=== PATIENT | male | born 1945 | race Caucasian/White ===

== ENCOUNTER 2020-01-09 00:31 | Outpatient (CLI) | payer MEDICARE, SELFPAY ==
[2020-01-09 18:10] LABS: SARS-CoV-2 RNA PCR Negative
== END 2020-01-09 00:32 | disposition home or self-care (01) ==
LOC: ANHCOVIDDT 00:31
PROVIDERS: PCP Internal Medicine; Visit Provider Internal Medicine Gastroenterology
DX: Z20.828 Contact with and (suspected) exposure to other viral communicable diseases (principal); Z01.812 Encounter for preprocedural laboratory examination
CPT/HCPCS: 87635; C9803; U0003

== ENCOUNTER 2020-01-11 03:44 | Day surgery (SDC) | payer MEDICARE, SELFPAY ==
[2020-01-08 10:26] VITALS: BMI 25.2
[2020-01-11 08:29] VITALS: BP 156/93; PULSE 81; RESP 16; TEMP 36.5; O2SAT 97; BMI 25.3
[2020-01-11] MEDS: LACTATED RINGERS 1,000 ML 150 ML IV CONT (08:47)
--- NOTE | 2020-01-11 08:56 | WPDANESEPPF ---
Anes - Initial Pre Proc Eval Procedure: Operation Date: 01/11/20 09:00 Proposed Procedures p Screening Colonoscopy - Jonathan Valdes MD Date/Time: 01/11/20 08:56 Surgeon: Jonathan Valdes MD Pre Op Diagnosis: Hx Of Polyps Patient Data Age: 74 Gender: M Height: 1.78 m Weight: 80.2 kg Last Vital Signs Temp 36.5 C 01/11/20 08:29 Pulse 81 01/11/20 08:29 Resp 16 01/11/20 08:29 BP 156/93 H 01/11/20 08:29 Pulse Ox 97 01/11/20 08:29 Allergies Allergy/AdvReac Type Severity Reaction Status Date / Time No Known Allergies Allergy Verified 01/11/20 08:28 Home Medications Medication Instructions Recorded Confirmed Type amlodipine 5 mg PO DAILY 01/08/20 01/08/20 History aspirin 81 mg PO DAILY 01/08/20 01/11/20 History atorvastatin 20 mg PO DAILY 01/08/20 01/08/20 History azithromycin 250 mg PO DAILY 01/08/20 01/08/20 History benzonatate 200 mg PO TID 01/08/20 01/08/20 History lactobacillus combination no.4 3,000 mmu cells PO DAILY 01/08/20 01/08/20 History [Probiotic] latanoprost 1 drp OPHTHALMIC (EYE) DAILY 01/08/20 01/08/20 History kvmdzpvp-jit-HG-lycopen-lutein 1 tablet PO DAILY 01/08/20 01/08/20 History [Centrum Silver Men] [id number]-[id number]-jwd-epa-fish oil [[place]-3 1 cap PO DAILY 01/08/20 01/08/20 History Fish Oil] omeprazole 20 mg PO DAILY 01/08/20 01/08/20 History Patient hx anesthesia problems: none Family hx anesthesia problems: none PMFSH Past Medical History Medical History (Updated 01/10/20 @ 10:20 by Danny Ledesma DO) DVT (deep venous thrombosis) b/l lower legs 05/2018 post hiatal hernia repair GERD (gastroesophageal reflux disease) Glaucoma Hyperlipidemia Hypertension Pulmonary embolism Surgical History Surgical History (Updated 01/10/20 @ 10:20 by Danny Ledesma DO) History of repair of hiatal hernia History of tonsillectomy Social History Social History (Updated 01/11/20 @ 08:57 by Danny Ledesma DO) Alcohol intake: current Alcohol use details: 3 drinks/day Anes - Eval Final PreProcedure Day of Procedure 01/11/20 08:56 Patient weight: overweight Heart: regular rate and rhythm Lungs: clear to auscultation and normal air movement Airway: Mallampati scale class II Neurological: alert and oriented Last oral intake: >/= 8 hours ASA classification: III Emergent: no Anesthetic plan: proceed Anesthesia type and monitoring: general GIVS and standard monitoring Informed Consent: The patient's anesthetic plan and its attendant risks and benefits were discussed with the patient/family/POA. Questions were solicited and answers provided to the satisfaction of the patient/family/POA.
[2020-01-11 09:49] VITALS: BP 138/91; PULSE 80; RESP 24; O2SAT 94
[2020-01-11 09:59] VITALS: BP 136/87; PULSE 77; RESP 21; O2SAT 94
[2020-01-11 10:09] VITALS: BP 135/83; PULSE 73; RESP 17; O2SAT 96
--- NOTE | 2020-01-22 10:25 | PM.HPGS ---
History of Present Illness History of Present Illness Consent: Risks, benefits, and alternatives have been discussed and questions answered. Patient agrees to proceed with procedure. Chief complaint: Hx Of Polyps Narrative: Babak Gillis is a 74 year old male undergoing screening colonoscopy. He has a history of polyp PMFSH Past Medical History Medical History DVT (deep venous thrombosis) b/l lower legs 05/2018 post hiatal hernia repair GERD (gastroesophageal reflux disease) Glaucoma Hyperlipidemia Hypertension Pulmonary embolism Surgical History Surgical History History of repair of hiatal hernia History of tonsillectomy Social History Social History (Updated 01/11/20 @ 08:57 by Danny Ledesma DO) Alcohol intake: current Alcohol use details: 3 drinks/day Meds Home Medications and Allergies Home Medications Medication Instructions Recorded Confirmed Type Centrum Silver Men 1 tablet PO DAILY 01/08/20 01/08/20 History [place]-3 Fish Oil 1 cap PO DAILY 01/08/20 01/08/20 History Probiotic 3,000 mmu cells PO DAILY 01/08/20 01/08/20 History amlodipine 5 mg PO DAILY 01/08/20 01/08/20 History aspirin 81 mg PO DAILY 01/08/20 01/11/20 History atorvastatin 20 mg PO DAILY 01/08/20 01/08/20 History azithromycin 250 mg PO DAILY 01/08/20 01/08/20 History benzonatate 200 mg PO TID 01/08/20 01/08/20 History latanoprost 1 drp OPHTHALMIC (EYE) DAILY 01/08/20 01/08/20 History omeprazole 20 mg PO DAILY 01/08/20 01/08/20 History Allergies Allergy/AdvReac Type Severity Reaction Status Date / Time No Known Allergies Allergy Verified 01/11/20 08:28 Exam Resp: Auscultation: clear to auscultation bilaterally Cardio: Rate: regular rate Rhythm: regular rhythm GI: GI Palp: Yes Soft to palpation and No Tenderness to palpation present (GI) Assessment and Plan Assessment and plan (1) Colon cancer screening: Code(s): Z12.11 - Encounter for screening for malignant neoplasm of colon Status: Acute Assessment and Plan: Colonoscopy with possible biopsy or polypectomy or cautery or injection of substances.
== END 2020-01-11 10:35 | disposition home or self-care (01) ==
PROVIDERS: PCP Internal Medicine; Visit Provider Internal Medicine Gastroenterology
PROC: 0DJD8ZZ Inspection of Lower Intestinal Tract, Via Natural or Artificial Opening Endoscopic (ICD-10-PCS; CPT 45378; principal; 2020-01-11 09:00)
DX: Z12.11 Encounter for screening for malignant neoplasm of colon (principal); K64.8 Other hemorrhoids; K57.30 Diverticulosis of large intestine without perforation or abscess without bleeding; I10 Essential (primary) hypertension; E78.5 Hyperlipidemia, unspecified; K21.9 Gastro-esophageal reflux disease without esophagitis; H40.9 Unspecified glaucoma; Z86.711 Personal history of pulmonary embolism; Z86.718 Personal history of other venous thrombosis and embolism; Z79.82 Long term (current) use of aspirin
CPT/HCPCS: G0121; J2001; J2704; J7120

== ENCOUNTER 2020-12-01 12:41 | Emergency (ER) | payer MEDICARE, SELFPAY ==
[2020-12-01] VITALS (9 sets, daily range): BP systolic 148–178; BP diastolic 85–95; PULSE 76–96; RESP 11–21; TEMP 36.5; O2SAT 97–100
--- NOTE | ~2020-12-01 | CT_ITS ---
EXAMINATION: CTA brain carotid EXAM DATE: 12/01/2020 17:56 INDICATION: Dizziness, syncope, frontal headache. Skin cancer. TECHNIQUE: Noncontrast head CT. Spiral CTA of the carotid arteries was performed with intravenous i njection 100 cc of Omnipaque 350. Axial, coronal, sagittal reformatted images reviewed. Additional r eformatted images created on dedicated 3-D workstation. NASCET comparable standard used to assess th e degree of arterial stenosis. Spiral CT angiogram cerebral arteries performed with the same intrave nous injection of contrast. Source images of the brain CTA transferred to dedicated workstation for 3 -D rotational image creation. Coronal, sagittal maximum intensity pixel images also reviewed. The d ose-length product (DLP) for this examination was 1658.88 mGy-cm. The exposure was tailored accordi ng to patient size, and iterative reconstruction (ASIR) was used as additional dose reduction techniq ue. There is no prior study for comparison. FINDINGS: Minimal bilateral carotid arteriosclerosis, with 0% stenosis bilaterally. Tortuosity to bot h carotid arteries. The left vertebral artery is dominant. There is no carotid or vertebral basilar arterial dissection or fibromuscular dysplasia. There are no cerebral artery aneurysms. There is symm etric cerebral artery arborization. The sagittal, transverse and sigmoid sinuses enhance normally, no venous sinus thrombosis. Internal cerebral veins also enhance normally. There is no acute intraparenchymal hemorrhage. No evidence of intraparenchymal brain mass lesion. N o evidence of acute infarction. There is mild periventricular and subcortical hypodensity, nonspecifi c but probably related to small vessel ischemic disease. There is moderate prominence of the sulci and ventricles related to cerebral atrophy. There is intracranial carotid arteriosclerosis. There is no mass effect or midline shift. There is no obstructive hydrocephalus suspected. There are no e xtra-axial collections. There are no calvarial acute fractures. Bilateral cataract surgery. Moderat e cervical spondylosis. IMPRESSION: 1. No acute carotid or intracranial findings. 2. Bilateral carotid 0% stenosis. 3. Chronic age related findings. Reviewed, dictated and finalized at location A.
--- NOTE | ~2020-12-01 | XR_ITS ---
EXAMINATION: XR chest 2V DATE: 12/01/2020 13:31 INDICATION: Headache. Dizziness. TECHNIQUE: Frontal and lateral views of the chest were obtained. COMPARISON: Chest CT 07/06/2018 FINDINGS: Again seen is mild scarring in the upper lobes. No pleural effusion or pneumothorax. The he art size is normal. IMPRESSION: 1. Stable mild scarring in the upper lobes. Reviewed, dictated and finalized at location B.
--- NOTE | 2020-12-01 13:02 | ECG_ITS ---
Measurements Intervals [place] Rate: 85 P: 62 AK: 187 QRS: -68 QRSD: 96 T: 65 QT: 374 QTc: 447 Interpretive Statements SINUS RHYTHM LEFT ANTERIOR FASCICULAR BLOCK BASELINE ARTIFACT- I, II, AVR, AVL ABNORMAL ECG Electronically Signed On 12-01-2020 13:14:03 CDT by Mikel Silva D.O.
[2020-12-01 13:18] LABS: Basophils Percent Auto 0.3 % (0.2-1.2); Eosinophils Absolute Auto 0.1 K/mm3 (0-0.3); Eosinophils Percent Auto 1.3 % (0-4.4); Hematocrit 45.8 % (42.0-52.0); Hemoglobin 15.5 g/dL (14.0-18.0); Immature Granulocyte Absolute 0.02 K/mm3 (0.00-0.031); Immature Granulocyte Percent A 0.2 % (0-0.5); Lymphocytes Percent Auto 36.6 % (18.3-44.2); Mean Corpuscular HGB Conc 33.8 g/dl (32-36); Mean Corpuscular Hemoglobin 28.7 pg (26-34); Mean Corpuscular Volume 84.8 fl (80-100); Mean Platelet Volume 9.3 fl (7.4-10.4); Monocytes Absolute Auto 0.9 K/mm3 (0.1-0.6); Monocytes Percent Auto 9.7 % (2.6-8.5); Neutrophils Absolute Auto 4.5 K/mm3 (1.3-6.7); Neutrophils Percent Auto 51.9 % (45.5-73.1); Platelet Count Result 251 k/mm3 (150-375); Red Cell Distribution Width 13.8 % (11.5-14.5); White Blood Count 8.7 K/mm3 (4.5-10.0)
[2020-12-01 13:27] LABS: Alanine Aminotransferase 54 U/L (4-50); Albumin Level 4.2 g/dL (3.5-5.1); Alkaline Phosphatase 80 U/L (38-126); Anion Gap 5 mmol/L (8-16); Aspartate Amino Transferase 53 U/L (17-59); Bilirubin,Total 0.6 mg/dL (0.2-1.3); Blood Urea Nitrogen 10 mg/dL (9-20); Calcium 8.9 mg/dL (8.4-10.2); Carbon Dioxide 26 mmol/L (22-30); Chloride 107 mmol/L (98-107); Estimated CRCL calculation 57 ml/min; Estimated Glomerular Filt Rate > 60; Glucose 154 mg/dL (75-110); Potassium 4.2 mmol/L (3.4-5.0); Sodium 138 mmol/L (137-145)
[2020-12-01] MEDS: SODIUM CHLORIDE 0.9% IV 1,000 ML 999 ML IV CONT (18:01)
--- NOTE | 2020-12-01 18:01 | ED.GENADULT ---
HPI - General Adult General Chief complaint: Dizziness Stated complaint: wants blood pressure checked/near syncopal yesterd Time Seen by Provider: 12/01/20 17:16 Source: patient and RN notes reviewed Mode of arrival: ambulatory Limitations: no limitations History of Present Illness HPI narrative: Patient is 75-year-old male who presents to emergency department for evaluation of dizziness that began acutely last night at 11:00 patient notes history of vertigo but notes that the dizziness came on acutely with some mild pain across the forehead. Patient has history of vertigo as noted has not take anything for his symptoms. Patient notes mild discomfort across the forehead at this time. Patient denies injury trauma or other complaints presents in no distress with normal gait Related Data Home Medications Medication Instructions Recorded Confirmed Centrum Silver Men 1 tablet PO DAILY 01/08/20 01/08/20 [place]-3 Fish Oil 1 cap PO DAILY 01/08/20 01/08/20 Probiotic 3,000 mmu cells PO DAILY 01/08/20 01/08/20 amlodipine 5 mg PO DAILY 01/08/20 01/08/20 aspirin 81 mg PO DAILY 01/08/20 01/11/20 atorvastatin 20 mg PO DAILY 01/08/20 01/08/20 azithromycin 250 mg PO DAILY 01/08/20 01/08/20 benzonatate 200 mg PO TID 01/08/20 01/08/20 latanoprost 1 drp OPHTHALMIC (EYE) DAILY 01/08/20 01/08/20 omeprazole 20 mg PO DAILY 01/08/20 01/08/20 Allergies Allergy/AdvReac Type Severity Reaction Status Date / Time No Known Allergies Allergy Verified 12/01/20 17:18 Review of Systems Review of Systems: All systems reviewed & are unremarkable except as noted in HPI and below PMFSH Past Medical History Medical History (Updated 12/01/20 @ 18:08 by Ramesy Prather PA-C) DVT (deep venous thrombosis) b/l lower legs 05/2018 post hiatal hernia repair GERD (gastroesophageal reflux disease) Glaucoma Hyperlipidemia Hypertension Pulmonary embolism Surgical History Surgical History History of repair of hiatal hernia History of tonsillectomy Social History Social History Alcohol intake: current Exam Narrative: Exam Narrative: GENERAL: Well-appearing, obese, and in no acute distress. HEAD: Normocephalic, atraumatic. EYES: PERRLA and EOMI. ENT: Nares clear, no rhinorrhea or epistaxis. Mucous membranes moist. CHEST: Clear to auscultation. No respiratory distress. No wheezes rales or rhonchi HEART: Regular rate and rhythm. No murmur heard. EXTREMITIES: Normal range of motion. No edema. SKIN: Warm, dry, no rash. NEURO: No focal deficits. Alert and oriented x3. Cranial nerves II through XII grossly intact. Normal speech and gait. No pronator drift. Cerebellar intact. Normal gait and speech. Normal [id number]-[id number] and lmkirj-tz-yaky. Equal personal lines advisor. No facial asymmetry. Motor and sensory intact and symmetrical in the upper and lower extremities PSYCH: Normal mood and affect. Course Course Emergency Course: Patient evaluated in the emergency department he notes that his dizziness is minimal he is resting comfortably in the room prefers to go home will follow with his primary care was able to ambulate with normal gait ABCs and vital signs intact and stable is aware of his case findings. Vital Signs Vital signs: Vital Signs Temperature 97.7 F 12/01/20 13:03 Pulse Rate 91 12/01/20 13:03 Respiratory Rate 18 12/01/20 13:03 Blood Pressure 148/85 H 12/01/20 13:03 Pulse Oximetry 97 12/01/20 13:03 Temperature 97.7 F 12/01/20 13:03 Pulse Rate 91 12/01/20 13:03 Respiratory Rate 18 12/01/20 13:03 Blood Pressure 148/85 H 12/01/20 13:03 Pulse Oximetry 97 12/01/20 13:03 Medical Decision Making [facility] Narrative Medical decision making narrative: Patient's dizziness is minimal in nature per patient, there are no focal neurological deficits on exam. Subarachnoid hemorrhage is felt to be unlikey at this diandra
[2020-12-01 18:02] LABS: Troponin I < 0.012 ng/mL (0.000-0.034)
[2020-12-01 19:14] LABS: Add Urine Microscopic? NO; Appearance Urine Clear (Clear); Bilirubin Urine Negative (Negative); Blood Urine Negative (Negative); Color Urine Yellow (Yellow); Glucose Urine UA Negative (Negative); Ketones Urine Negative (Negative); Leukocyte Esterase Ur Negative LEU/UL (Negative); Nitrate Urine Negative (Negative); Protein Urine Negative (Negative); Specific Grav Ur 1.019 (1.001-1.035); Urobilinogen Urine Negative mg/dL (<2.0)
== END 2020-12-01 19:20 | disposition home or self-care (01) ==
PROVIDERS: Emergency Medicine; Emergency Medicine Emergency Medical Services; Emergency Provider Family Medicine; PCP Internal Medicine
DX: R42 Dizziness and giddiness (principal); I10 Essential (primary) hypertension; E78.5 Hyperlipidemia, unspecified; H40.9 Unspecified glaucoma; K21.9 Gastro-esophageal reflux disease without esophagitis; Z86.718 Personal history of other venous thrombosis and embolism; Z86.711 Personal history of pulmonary embolism
CPT/HCPCS: 36415; 70496; 70498; 71046; 80053; 81003; 84484; 85025; 93005; 96360; 99284; J7030; Q9967

== ENCOUNTER 2021-10-15 07:50 | Observation (INO) | payer MEDICARE, SELFPAY ==
[2021-10-15] VITALS (35 sets, daily range): BP systolic 117–173; BP diastolic 68–103; PULSE 80–111; RESP 10–25; TEMP 36.4–37.3; O2SAT 88–99
--- NOTE | ~2021-10-15 | US_ITS ---
US right upper quadrant INDICATION: Right upper quadrant pain. Vomiting. PROCEDURE: Realtime right upper abdominal ultrasound. COMPARISON: No prior studies for comparison. FINDINGS: The pancreas is normal without focal mass or pancreatic ductal dilation. Liver appears enl arged. There is a simple liver cyst measuring 3.6 cm. There is normal directional flow in the portal vein. There are gallstones. No gallbladder wall thickening or pericholecystic fluid. Common bile duct mary ures 5.6 mm. No sonographic Ragland's sign. IMPRESSION: 1: Hepatomegaly with 3.6 cm liver cyst. 2: Cholelithiasis. Reviewed, dictated and finalized at location A.
[2021-10-15 08:11] LABS: Basophils Absolute Auto 0.1 K/mm3 (0.0-0.1); Basophils Percent Auto 0.5 % (0.2-1.2); Eosinophils Absolute Auto 0.3 K/mm3 (0-0.3); Eosinophils Percent Auto 2.2 % (0-4.4); Hematocrit 50.4 % (42.0-52.0); Hemoglobin 16.8 g/dL (14.0-18.0); Immature Granulocyte Absolute 0.06 K/mm3 (0.00-0.031); Immature Granulocyte Percent A 0.5 % (0-0.5); Lymphocytes Absolute Auto 3.44 K/mm3 (0.9-3.2); Lymphocytes Percent Auto 29.6 % (18.3-44.2); Mean Corpuscular HGB Conc 33.3 g/dl (32-36); Mean Corpuscular Hemoglobin 30.2 pg (26-34); Mean Corpuscular Volume 90.5 fl (80-100); Mean Platelet Volume 9.4 fl (7.4-10.4); Monocytes Absolute Auto 0.9 K/mm3 (0.1-0.6); Monocytes Percent Auto 8.1 % (2.6-8.5); Neutrophils Absolute Auto 6.9 K/mm3 (1.3-6.7); Neutrophils Percent Auto 59.1 % (45.5-73.1); Platelet Count Result 285 k/mm3 (150-375); Red Blood Count 5.57 M/mm3 (4.6-6.20); Red Cell Distribution Width 13.4 % (11.5-14.5); White Blood Count 11.6 K/mm3 (4.5-10.0)
[2021-10-15 08:20] LABS: Alanine Aminotransferase 52 U/L (4-50); Albumin Level 4.6 g/dL (3.5-5.1); Alkaline Phosphatase 121 U/L (38-126); Anion Gap 9 mmol/L (8-16); Aspartate Amino Transferase 57 U/L (17-59); Bilirubin,Total 0.5 mg/dL (0.2-1.3); Blood Urea Nitrogen 11 mg/dL (9-20); Calcium 8.8 mg/dL (8.4-10.2); Carbon Dioxide 27 mmol/L (22-30); Chloride 104 mmol/L (98-107); Estimated CRCL calculation 48 ml/min; Estimated Glomerular Filt Rate 59; Glucose 143 mg/dL (65-110); Lipase 56 U/L (23-300); Potassium 3.6 mmol/L (3.4-5.0); Sodium 140 mmol/L (137-145)
[2021-10-15 09:07] LABS: D Dimer 0.46 ug/mL (<0.48)
[2021-10-15] MEDS: MORPHINE SULFATE (*CRX) 4 MG/ML INJ IV PUSH (09:09)
[2021-10-15] MEDS: ONDANSETRON INJ 4 MG/2 ML VIAL IV PUSH ×2 (09:09→12:40)
--- NOTE | 2021-10-15 11:45 | ED.ABDPAIN ---
HPI - Abdominal Pain General Chief Complaint: Abdominal Pain Stated Complaint: abd pain Time Seen by Provider: 10/15/21 08:35 Source: patient Mode of arrival: ambulatory Limitations: no limitations History of Present Illness HPI narrative: 75-year-old with a history of hypertension, hyperlipidemia , PE 3 years ago here with complaints of right upper quadrant pain. Patient states that he was nauseated and threw up once. He denies any fever or chills. Denies any cough or shortness of breath. MD elicited complaint: abdominal pain Pertinent past history: none Onset (ago): hour(s) (4) Pain Consistency: constant Location: RUQ Quality: aching Radiation: none Migration to: RUQ Exacerbating factors: nothing Relieving factors: nothing Associated symptoms: nausea and vomiting Related Data Home Medications Medication Instructions Recorded Confirmed Centrum Silver Men 1 tablet PO DAILY 01/08/20 01/08/20 [place]-3 Fish Oil 1 cap PO DAILY 01/08/20 01/08/20 Probiotic 3,000 mmu cells PO DAILY 01/08/20 01/08/20 amlodipine 5 mg PO DAILY 01/08/20 01/08/20 aspirin 81 mg PO DAILY 01/08/20 01/11/20 atorvastatin 20 mg PO DAILY 01/08/20 01/08/20 latanoprost 1 drp OPHTHALMIC (EYE) DAILY 01/08/20 01/08/20 omeprazole 20 mg PO DAILY 01/08/20 01/08/20 Allergies Allergy/AdvReac Type Severity Reaction Status Date / Time No Known Allergies Allergy Verified 10/15/21 07:57 Review of Systems Review of Systems: All systems reviewed & are unremarkable except as noted in HPI and below Constitutional: Constitutional: Reports no additional constitutional complaints Eyes: Eyes: Reports no additional eye complaints ENT: Reports system reviewed and no additional complaints, except as documented Cardiovascular: Cardiovascular: Reports no additional cardiovascular complaints Respiratory: Respiratory: Reports as per HPI Gastrointestinal: Gastrointestinal: Reports abdominal pain, Reports nausea and Reports vomiting Musculoskeletal: Musculoskeletal: Reports no additional musculoskeletal complaints Neurologic: Reports system reviewed and no additional complaints, except as documented PMF Past Medical History Medical History (Updated 10/15/21 @ 12:24 by Bladimir Blandon MD) DVT (deep venous thrombosis) b/l lower legs 05/2018 post hiatal hernia repair GERD (gastroesophageal reflux disease) Glaucoma Hyperlipidemia Hypertension Pulmonary embolism Surgical History Surgical History History of repair of hiatal hernia History of tonsillectomy Social History Social History Alcohol intake: current Alcohol use details: 3 drinks/day Exam Narrative: GENERAL: Well-appearing, well-nourished, and in no acute distress. HEAD: Normocephalic, atraumatic. EYES: PERRLA and EOMI.. NECK: Supple. CHEST: Clear to auscultation. No respiratory distress. HEART: Regular rate and rhythm. No murmur heard. Normal peripheral pulses. ABDOMEN: Soft , right upper quadrant tenderness.. EXTREMITIES: Normal range of motion. No edema. SKIN: Warm, dry, no rash. NEURO: No focal deficits. Alert and oriented x3. PSYCH: Normal mood and affect. Course Course Emergency Course: Patient still continues to be in pain in the right upper quadrant area however his nausea is improved , informed him about his lab work, ultrasound findings. I discussed with Dr. Chacon . Patient wants his gallbladder taken out as he cannot stand the pain. Vital Signs Vital signs: Vital Signs Temperature 36.4 C 10/15/21 07:54 Pulse Rate 109 H 10/15/21 07:54 Respiratory Rate 16 10/15/21 07:54 Blood Pressure 173/103 H 10/15/21 07:54 Pulse Oximetry 98 10/15/21 07:54 Temperature 36.4 C 10/15/21 07:54 Pulse Rate 91 10/15/21 12:02 Respiratory Rate 18 10/15/21 12:02 Blood Pressure 154/77 H 10/15/21 12:02 Pulse Oximetry 97 10/15/21 12:02 MDM - Abdom
[2021-10-15] MEDS: LACTATED RINGERS 1,000 ML 30 ML IV CONT ×2 (12:30→14:53)
--- NOTE | 2021-10-15 13:26 | WPDANESEPPF ---
Anes - Initial Pre Proc Eval Procedure: Operation Date: 10/15/21 14:00 Proposed Procedures p Laparoscopic Cholecystectomy - Alexandra Chacon MD Date/Time: 10/15/21 13:26 Surgeon: Alexandra Chacon MD Pre Op Diagnosis: abd pain Patient Data Age: 75 Gender: M Height: 1.78 m Weight: 77.1 kg Last Vital Signs Temp 37.0 C 10/15/21 12:31 Pulse 94 10/15/21 12:31 Resp 18 10/15/21 12:31 BP 145/73 H 10/15/21 12:31 Pulse Ox 97 10/15/21 12:31 Allergies Allergy/AdvReac Type Severity Reaction Status Date / Time No Known Allergies Allergy Verified 10/15/21 07:57 Home Medications Medication Instructions Recorded Confirmed Type Centrum Silver Men 1 tablet PO DAILY 01/08/20 01/08/20 History [place]-3 Fish Oil 1 cap PO DAILY 01/08/20 01/08/20 History Probiotic 3,000 mmu cells PO DAILY 01/08/20 01/08/20 History amlodipine 5 mg PO DAILY 01/08/20 01/08/20 History aspirin 81 mg PO DAILY 01/08/20 01/11/20 History atorvastatin 20 mg PO DAILY 01/08/20 01/08/20 History latanoprost 1 drp OPHTHALMIC (EYE) DAILY 01/08/20 01/08/20 History omeprazole 20 mg PO DAILY 01/08/20 01/08/20 History Laboratory Tests 10/15/21 10/15/21 10/15/21 07:58 07:58 08:06 WBC 11.6 K/mm3 H K/mm3 (4.5-10.0) RBC 5.57 M/mm3 M/mm3 (4.6-6.20) Hgb 16.8 g/dL g/dL (14.0-18.0) Hct 50.4 % % (42.0-52.0) MCV 90.5 fl fl (80-100) MCH 30.2 pg pg (26-34) MCHC 33.3 g/dl g/dl (32-36) RDW 13.4 % % (11.5-14.5) Plt Count 285 k/mm3 k/mm3 (150-375) MPV 9.4 fl fl (7.4-10.4) Immature Gran % (Auto) 0.5 % % (0-0.5) Neut % (Auto) 59.1 % % (45.5-73.1) Lymph % (Auto) 29.6 % % (18.3-44.2) [place] % (Auto) 8.1 % % (2.6-8.5) Eos % (Auto) 2.2 % % (0-4.4) Baso % (Auto) 0.5 % % (0.2-1.2) Lymph # (Auto) 3.44 K/mm3 H K/mm3 (0.9-3.2) [place] # (Auto) 0.9 K/mm3 H K/mm3 (0.1-0.6) Eos # (Auto) 0.3 K/mm3 K/mm3 (0-0.3) Baso # (Auto) 0.1 K/mm3 K/mm3 (0.0-0.1) Abs Immat Gran (auto) 0.06 K/mm3 H K/mm3 (0.00-0.031) Absolute Neuts (auto) 6.9 K/mm3 H K/mm3 (1.3-6.7) Absolute Nucleated RBC 0.0 K/mm3 K/mm3 (0.0-0.012) Nucleated RBC % 0.0 % % (0.0-0.2) D-Dimer 0.46 ug/mL ug/mL (<0.48) Sodium 140 mmol/L mmol/L (137-145) Potassium 3.6 mmol/L mmol/L (3.4-5.0) Chloride 104 mmol/L mmol/L (98-107) Carbon Dioxide 27 mmol/L mmol/L (22-30) Anion Gap 9 mmol/L mmol/L (8-16) BUN 11 mg/dL mg/dL (9-20) Creatinine 1.20 mg/dL mg/dL (0.7-1.3) Estim Creat Clear Calc 48 ml/min ml/min Estimated GFR 59 (59 - ) Glucose 143 mg/dL H mg/dL (65-110) Calcium 8.8 mg/dL mg/dL (8.4-10.2) Total Bilirubin 0.5 mg/dL mg/dL (0.2-1.3) AST 57 U/L U/L (17-59) ALT 52 U/L H U/L (4-50) Alkaline Phosphatase 121 U/L U/L (38-126) Total Protein 8.0 g/dL g/dL (6.3-8.2) Albumin 4.6 g/dL g/dL (3.5-5.1) Lipase 56 U/L U/L (23-300) Patient hx anesthesia problems: none Family hx anesthesia problems: none Results Review: All pre-operative results and documents have been reviewed as part of the pre-operative evaluation. [facility] Past Medical History Medical History DVT (deep venous thrombosis) b/l lower legs 05/2018 post hiatal hernia repair GERD (gastroesophageal reflux disease) Glaucoma Hyperlipidemia Hypertension Pulmonary embolism Surgical History Surgical History History of repair of hiatal hernia History of tonsillectomy Social History Social History
[2021-10-15] MEDS: diphenhydrAMINE HCl INJ 50 MG/ML VIAL 12.5 MG IV PUSH (13:33)
--- NOTE | 2021-10-15 13:48 | PM.IMHP ---
H&P: HPI History of Present Illness Date/Time: 10/15/21 13:48 Pt is a 75 y/o M presenting to ED c/o severe epigastric/RUQ abdominal awakening him from sleep at 5am this morning. Pt reports he was fine yesterday and had cheeseburger for dinner last night. Pt reports the pain is constant and dull, rating pain at 7-8/10. Pt reports assoc N/V, bloating. Pt reports he has had milder symptoms in the past. Pt reports biliary disease in the family, requiring cholecystectomy in multiple members. Chief Complaint: cholecystitis Review of Systems Constitutional: Constitutional: Reports as per HPI, Reports anorexia, Denies chills, Denies fatigue, Denies fever(s), Denies lethargy, Denies malaise, Reports poor appetite, Denies weakness, Denies weight gain and Denies weight loss Eyes: Eyes: Reports no additional eye complaints ENT: Reports system reviewed and no additional complaints, except as documented Cardiovascular: Cardiovascular: Reports no additional cardiovascular complaints Respiratory: Respiratory: Reports no additional respiratory complaints Gastrointestinal: Gastrointestinal: Reports as per HPI, Reports abdominal pain, Reports belching, Reports bloating, Denies constipation, Denies GI cramping, Reports early satiety, Reports heartburn, Denies diarrhea, Denies loose stools, Reports nausea and Reports vomiting Genitourinary: Genitourinary: Reports no additional male genitourinary complaints Musculoskeletal: Musculoskeletal: Reports no additional musculoskeletal complaints Integumentary/Breasts: Skin/Breast: Reports system reviewed and no additional complaints, except as docu Neurologic: Reports system reviewed and no additional complaints, except as documented Psychiatric: Psychiatric: Reports no additional psychiatric complaints Endocrine: Endocrine: Reports no additional endocrine complaints Hematologic/Lymphatic: Hematologic/Lymphatic: Reports no additional hematologic/lymphatic complaints Allergic/Immunologic: Allergic/Immunologic: Reports no additional allergic/immunologic complaints [facility] Past Medical History Medical History (Updated 10/15/21 @ 13:53 by Alexandra Chacon MD) DVT (deep venous thrombosis) b/l lower legs 05/2018 post hiatal hernia repair GERD (gastroesophageal reflux disease) Glaucoma Hyperlipidemia Hypertension Pulmonary embolism Surgical History Surgical History History of repair of hiatal hernia History of tonsillectomy Social History Social History Alcohol intake: current Alcohol use details: 3 drinks/day Meds Home Medications and Allergies Home Medications Medication Instructions Recorded Confirmed Type Centrum Silver Men 1 tablet PO DAILY 01/08/20 01/08/20 History [place]-3 Fish Oil 1 cap PO DAILY 01/08/20 01/08/20 History Probiotic 3,000 mmu cells PO DAILY 01/08/20 01/08/20 History amlodipine 5 mg PO DAILY 01/08/20 01/08/20 History aspirin 81 mg PO DAILY 01/08/20 01/11/20 History atorvastatin 20 mg PO DAILY 01/08/20 01/08/20 History latanoprost 1 drp OPHTHALMIC (EYE) DAILY 01/08/20 01/08/20 History omeprazole 20 mg PO DAILY 01/08/20 01/08/20 History Allergies Allergy/AdvReac Type Severity Reaction Status Date / Time No Known Allergies Allergy Verified 10/15/21 07:57 Vital Signs Vital Signs - 24 hr 10/15/21 07:54 10/15/21 07:56 10/15/21 07:57 Temperature 36.4 C Pulse Rate 109 H 107 H 111 H Respiratory Rate 16 22 H 19 Blood Pressure 173/103 H 173/103 H Pulse Oximetry 98 98 97 10/15/21 08:00 10/15/21 08:15 10/15/21 08:30 Temperature Pulse Rate 108 H 91 91 Respiratory Rate 22 H 18 19 Blood Pressure Pulse Oximetry 97 96 99 10/15/21 08:32 10/15/21 08:45 10/15/21 09:09 Temperature Pulse Rate 97 88 90 Respiratory Rate 20 13 23 H Blood Pressure 150/92 H Pulse Oximetry 93 97 98 10/15/21 09:15 10/15/21 09:30 10/15/21 09:45
--- NOTE | 2021-10-15 13:54 | WPDHPUPDATE1 ---
History and Physical Update Update Date/Time: 10/15/21 13:54 History and Physical has been reviewed, including an updated exam of the patient. There are NO changes in the patient's condition. Risks, benefits, and alternatives have been discussed and questions answered. Patient agrees to proceed with procedure.
[2021-10-15] MEDS: ceFAZolin 2 GM/D5W 50 ML 2 GM/50 ML BAG IVPB (13:55)
--- NOTE | 2021-10-15 14:47 | W.PM.PROC2 ---
Procedure Note - Detailed Date of Procedure 10/15/21 Pre-op Diagnosis Acute cholecystitis, cholelithiasis Post-op Diagnosis Same Procedure Performed laparoscopic cholecystectomy Surgeon Alexandra Chacon MD Anesthesia General Indications 75-year-old male presenting to the emergency department with acute cholecystitis, cholelithiasis Findings acute hydrops cholecystitis, cholelithiasis Description of Procedure The patient was taken to the operating room placed in the supine position. After adequate induction of general anesthesia, the patient was prepped and draped in normal sterile fashion. A time-out was then performed to verify the patient's identity as well as the procedure being performed. I then made a 5 mm incision in the infraumbilical region. Through this, a Veress needle was placed into the peritoneal cavity and CO2 gas was then insufflated. After adequate pneumoperitoneum was achieved, the Veress needle was removed and a 5 mm optiview trocar was placed through this incision under direct visualization. I then placed the laparoscope through this trocar site and under direct visualization placed a further 12 mm subxiphoid port as well as 2 additional 5 mm ports in the right upper abdomen. The gallbladder was then identified and was noted to be inflamed, distended, and noted impacted gallstone at the neck of the gallbladder. Given this, I decompressed the gallbladder with an ovarian needle attached to suction. Hydrops cholecystitis was noted at this point. Once decompressed, I was able to place a grasper at the dome of the gallbladder and this was retracted anterior and cephalad up over the liver. A 2nd retractor was then placed at the infundibulum and retracted laterally, this allowed visualization of the triangle of Calot. I then was able to visualize the cystic duct in its entirety from its proximal insertion into the gallbladder, to its distal junction with the common hepatic/common bile duct junction. At this point, I carefully skeletonized the proximal cystic duct with the [place] dissector. I then clipped and transected the proximal cystic duct. Next I visualized the cystic artery. Again the artery was skeletonized, clipped, and transected. I then used the Bovie cautery to take down the peritoneal attachments of the gallbladder off the liver bed. This was somewhat difficult given the amount of inflammation in the posterior space. Once the gallbladder specimen was completely detached, an endo-pouch was placed through the 12 mm port site. I then placed the gallbladder specimen into the Endo pouch and removed the endo-pouch from the 12 mm port site. The specimen will now be sent to pathology for further review. I then copiously irrigated the right upper quadrant. Some mild oozing was noted in the liver bed and this was controlled with the bovie cautery. Hemostasis was noted in the liver bed, the clips were noted to be in good position on both the cystic duct stump and the cystic artery stump. No other pathology was noted in the right upper quadrant. I then moved the laparoscope to the subxiphoid port. No iatrogenic injury or other pathology was noted in the lower abdomen. I then closed the 12 mm trocar site under direct visualization using the Eliezer cone and 0 Vicryl suture. At this point, the abdomen was desufflated and all ports removed. All port sites were then closed with 4.O Monocryl subcuticular sutures. Dermabond was placed on each incision. The patient tolerated the procedure well, was extubated in the operating room postoperative and will be transferred to the recovery room in stable condition Estimated Blood Loss 20 Urine Output 150 Drains No Packing No Pathology Yes Complications No immediate complications Condition Stable Disposition PACU
[2021-10-15] MEDS: LACTATED RINGERS 1,000 ML 100 ML IV CONT (17:10)
--- NOTE | 2021-10-15 17:35 | PC.NURSE ---
This patient, Babak Gillis, was admitted to Medical Room 250-01. Patient/family oriented to hospital policies and general routines including ID bracelet, bed and alarms, visiting hours, pain management, procedures, bathroom and other care routines, personal items, smoking policy, room service/diet, and visiting hours. Information on how to activate the Rapid Response Team has been discussed. Patient/Family are encouraged to report perceived risks to care and to ask questions if they do not understand what they are told or what they should do.
[2021-10-15] MEDS: HYDROcodone/acetaminophen (*CRX) 5-325 MG TABLET 1 TAB PO (22:10)
[2021-10-16 01:35] VITALS: BP 119/74; PULSE 93; RESP 14; TEMP 36.8; O2SAT 93
[2021-10-16 06:02] LABS: Hemoglobin 14.5 g/dL (14.0-18.0); Mean Corpuscular HGB Conc 33.7 g/dl (32-36); Mean Corpuscular Hemoglobin 30.3 pg (26-34); Mean Platelet Volume 9.6 fl (7.4-10.4); Platelet Count Result 260 k/mm3 (150-375); Red Blood Count 4.78 M/mm3 (4.6-6.20); Red Cell Distribution Width 13.4 % (11.5-14.5); White Blood Count 20.1 K/mm3 (4.5-10.0)
[2021-10-16 06:12] LABS: Anion Gap 8 mmol/L (8-16); Blood Urea Nitrogen 13 mg/dL (9-20); Calcium 8.3 mg/dL (8.4-10.2); Carbon Dioxide 23 mmol/L (22-30); Chloride 104 mmol/L (98-107); Estimated CRCL calculation 57 ml/min; Estimated Glomerular Filt Rate > 60; Glucose 135 mg/dL (65-110); Potassium 3.9 mmol/L (3.4-5.0); Sodium 135 mmol/L (137-145)
[2021-10-16 07:26] VITALS: BP 127/69; PULSE 87; RESP 16; TEMP 36.6; O2SAT 93
[2021-10-16 07:50] VITALS: O2SAT 94
[2021-10-16 08:01] VITALS: BP 141/77; PULSE 94; RESP 12; TEMP 36.8; O2SAT 94
[2021-10-16] MEDS: ENOXAPARIN 40 MG/0.4 ML SYRINGE SUB-Q (08:32)
[2021-10-16] MEDS: ACETAMINOPHEN 500 MG TABLET PO (11:14)
[2021-10-16 12:00] VITALS: O2SAT 95
[2021-10-16 12:01] VITALS: BP 137/71; PULSE 86; RESP 14; TEMP 36.4; O2SAT 94
--- NOTE | 2021-10-16 14:02 | PC.NURSE ---
On 10/16/21, the student, [Immanuel Robles & Lyn Castano], provided care and completed Tra[employer] documentation on this patient. I have reviewed the student's documentation and agree with the findings.
--- NOTE | 2021-10-16 14:30 | PM.DS ---
DS: Admitting Diagnosis Discharge Date 10/16/21 Admitting Diagnosis acute cholecystitis DS: Discharge Diagnosis Discharge Diagnosis (1) Cholecystitis: Code(s): K81.9 - Cholecystitis, unspecified Status: Acute Assessment and Plan: s/p lap leah, cont routine postop care, f/u 2 wks (2) Hypertension: Code(s): I10 - Essential (primary) hypertension Status: Acute Assessment and Plan: stable, cont home meds (3) Pulmonary embolism: Code(s): I26.99 - Other pulmonary embolism without acute cor pulmonale Status: Acute Assessment and Plan: encourage OOB/ambulation DS: Summary Hospital Course Reason for hospitalization: acute cholecystitis Hospital Course: The patient is a 75-year-old male presenting to the emergency department complaining of severe upper abdominal pain, intractable nausea and vomiting. Prep in the emergency department including imaging was significant for acute cholecystitis, cholelithiasis. Given this the patient was admitted to the surgical service. Upon evaluation, it was decided the patient would need urgent cholecystectomy. The patient was taken to the operating room and cholecystectomy was performed on 10/15, please see full operative report for details of that procedure. Postoperatively, the patient was transferred to the surgical floor. Patient reports that he has done quite well and all preoperative symptomatology is resolved. On postoperative day 1. , the patient is tolerating a full diet and ambulating without issue. His pain is well controlled with p.o. analgesia. At this time, he will be discharged home with p.o. analgesia. He will follow up with me in 2 weeks. Status at Discharge Functional status at discharge: independent ambulation Overall status at discharge: patient is progressing back to baseline Time Spent with Patient Time attestation: Total time spent providing and/or coordinating discharge services: Time spent: Less than 30 minutes Exam Const: General: cooperative, comfortable and no acute distress Resp: Auscultation: clear to auscultation bilaterally Cardio: Rate: regular rate Rhythm: regular rhythm GI: Inspection: normal to inspection, distended and incision GI Palp: Yes Soft to palpation, Yes Tenderness to palpation present (GI), No Guarding due to palpation present (GI) and No Rigid due to palpation DS: Data Data Completed and Pending Pending studies at discharge: Pending at discharge 10/15/21 14:19 Surgical [PTH] Routine Labs on day of discharge: Labs from last 24 hours 10/16/21 10/16/21 05:20 05:20 WBC 20.1 H RBC 4.78 Hgb 14.5 Hct 43.0 MCV 90.0 MCH 30.3 MCHC 33.7 RDW 13.4 Plt Count 260 MPV 9.6 Sodium 135 L Potassium 3.9 Chloride 104 Carbon Dioxide 23 Anion Gap 8 BUN 13 Creatinine 1.00 Estim Creat Clear Calc 57 Estimated GFR > 60 Glucose 135 H Calcium 8.3 L Discharge Plan Discharge Attending physician on discharge: Alexandra Chacon Discharging Clinician: Alexandra Chacon Anticipated Discharge Date/Time: 10/16/21 14:28 Patient Disposition: Home, Self-Care Activity: other - see discharge instructions Diet: other - see discharge instructions Wound Care Instructions: follow printed instructions Discharge Instructions: DISCHARGE INSTRUCTION SHEET FOR HERNIA, GALLBLADDER AND APPENDIX SURGERIES DR. CHACON PATIENT TO TAKE HOME 1. May shower in 24 hours, no soaking in bath x 2weeks. 2. Call office for: Wound increasingly painful or bleeding Vomiting Fever of greater than 101 degrees 3. If no bowel movement for three days, take 1 oz. (30 ml) Milk of Magnesia or MiraLax 17g 1 to 2 times daily. 4. No heavy lifting > 10-15 pounds x 6 weeks for hernia repairs and 2 weeks for laparoscopic cholecystectomy or appendectomy. 5. No driving for 3 days or while taking narcotic pain medications. 6. Ice to surgical sit
--- NOTE | 2021-10-16 15:02 | WPDANESPN ---
Anes - Prog Note Post-Op Date/Time: 10/16/21 15:02 Cardiovascular status: normal Respiratory status: normal Airway patency: baseline Mental status: baseline Post-Op hydration status: normal Vital Signs: Last Vital Signs Temp 36.4 C L 10/16/21 12:01 Pulse 86 10/16/21 12:01 Resp 14 10/16/21 12:01 BP 137/71 10/16/21 12:01 Pulse Ox 94 10/16/21 12:01 Pain Score (VAS): 2 I/O: Intake & Output 10/15/21 10/16/21 10/16/21 23:59 07:59 15:59 Intake Total 794 926 2007 Output Total 300 300 Balance -30 550 752 Laboratory Tests 10/16/21 05:20 10/16/21 05:20 10/16/21 10/16/21 05:20 05:20 WBC 20.1 H RBC 4.78 Hgb 14.5 Hct 43.0 MCV 90.0 MCH 30.3 MCHC 33.7 RDW 13.4 Plt Count 260 MPV 9.6 Sodium 135 L Potassium 3.9 Chloride 104 Carbon Dioxide 23 Anion Gap 8 BUN 13 Creatinine 1.00 Estim Creat Clear Calc 57 Estimated GFR > 60 Glucose 135 H Calcium 8.3 L Post-procedural complaints: none Patient Feedback: Patient satisfied with anesthetic care.
== END 2021-10-16 15:47 | disposition home or self-care (01) ==
LOC: ANHED 10:34 → ANHSURGERY 10:37 → ANH2MED 16:07
PROVIDERS: Emergency Medicine; Admitting Provider Surgery; Emergency Provider Family Medicine; PCP Internal Medicine; Visit Provider Surgery
PROC: 0FT44ZZ Resection of Gallbladder, Percutaneous Endoscopic Approach (ICD-10-PCS; CPT 47562; principal; 2021-10-15 14:00)
DX: K80.12 Calculus of gallbladder with acute and chronic cholecystitis without obstruction (principal); K82.1 Hydrops of gallbladder; E78.5 Hyperlipidemia, unspecified; H40.9 Unspecified glaucoma; I10 Essential (primary) hypertension; K21.9 Gastro-esophageal reflux disease without esophagitis; Z79.82 Long term (current) use of aspirin; Z87.891 Personal history of nicotine dependence; Z86.718 Personal history of other venous thrombosis and embolism; Z86.711 Personal history of pulmonary embolism
CPT/HCPCS: 47562; 36415; 76705; 80048; 80053; 83690; 85025; 85027; 85380; 88304; 96361; 96365; 96375; 96376; 99285; A9270; G0378; J0690; J1200; J1650; J2250; J2270; J2405; J2704; J3010; J7030; J7120

== ENCOUNTER → 2023-04-20 09:08 | Outpatient (CLI) | payer MEDICARE, SELFPAY ==
--- NOTE | ~2023-04-20 | CT_ITS ---
EXAMINATION: CT abdomen pelvis wo con DATE: 04/20/2023 09:24 INDICATION: Abdominal bloating TECHNIQUE: Computed tomography (CT) of the abdomen and pelvis was performed without intravenous contr ast. The dose-length product (DLP) was 692.73 mGy-cm. Automated exposure control and iterative recons truction technique were employed. COMPARISON: 07/06/2018 FINDINGS: Minimal dependent atelectasis is present in the lung bases. The heart size is normal. There is a moderate-sized sliding hiatal hernia. There is a 3.3 cm cyst of the liver. Changes of cholecyst ectomy are noted. Punctate calcifications in an otherwise normal spleen likely represent healed granu lomatous disease. The pancreas and adrenal glands are normal. Cysts of the kidneys measure up to 2.7 cm on the right. No pathologically enlarged abdominal or pelvic lymph nodes are identified. No free i ntraperitoneal gas or evidence of bowel obstruction. Colonic diverticulosis is present without eviden ce of diverticulitis. The appendix is normal. There are umbilical and inguinal hernias containing fat . There is moderate lumbar spondylosis. IMPRESSION: 1. No CT correlate for the patient's symptoms. 2. Moderate-sized hiatal hernia. Reviewed, dictated and finalized at location F.
== END ==
PROVIDERS: PCP Internal Medicine; Visit Provider Internal Medicine
DX: R14.0 Abdominal distension (gaseous) (principal); K44.9 Diaphragmatic hernia without obstruction or gangrene
CPT/HCPCS: 74176

== ENCOUNTER 2023-05-18 02:01 | Day surgery (SDC) | payer MEDICARE, SELFPAY ==
[2023-05-11 12:23] VITALS: BMI 25.4
--- NOTE | 2023-05-17 16:40 | PM.HPGS ---
History of Present Illness History of Present Illness Consent: Risks, benefits, and alternatives have been discussed and questions answered. Patient agrees to proceed with procedure. Chief complaint: Early satiety, abdominal distension,anorexia Narrative: Babak Gillis Jr. is a 77 year old male ?has a past medical history of esophageal stricture and hiatal hernia repair around [address] Molina at [facility].? Recent CT scan 04/20/2023 noted a moderate size hiatal hernia (recs reviewed).? other past medical history including hypertension, basal cell skin cancer, history of DVT, GERD, neuropathy, and hyperlipidemia.? He states over the last few months he has been noticing no appetite or he does not feel hungry.? He also states after 2-3 bites of food he feels upper abdominal bloating.? He feels like if he would to keep eating he could vomit up the food. Review of Systems Review of Systems: All systems reviewed & are unremarkable except as noted in HPI and below PMFSH Past Medical History Medical History Bloating Constipation Diverticulosis DVT (deep venous thrombosis) b/l lower legs 05/2018 post hiatal hernia repair Early satiety GERD (gastroesophageal reflux disease) Glaucoma Hiatal hernia Hyperlipidemia Hypertension Pulmonary embolism Surgical History Surgical History History of repair of hiatal hernia History of tonsillectomy Hx laparoscopic cholecystectomy 10/15/21 Social History Social History Smoking packs per day: 1 Smoking cigarettes per day: 20.0 Smoking status: Former smoker Tobacco type: cigarettes Second hand tobacco smoke exposure: No Additional smoking assessment comments: 40 years ago Alcohol intake: current Drinks per week: 20 Alcohol use details: DRINKS AND BEER Substance use: never Substance use type: does not use Living arrangements: with family Spiritual care concerns: No Meds Home Medications and Allergies Home Medications Medication Instructions Recorded Confirmed Type amlodipine 5 mg tablet 5 mg PO DAILY 01/08/20 05/11/23 History aspirin 81 mg tablet,delayed 81 mg PO DAILY 01/08/20 05/11/23 History release atorvastatin 20 mg tablet 20 mg PO DAILY 01/08/20 05/11/23 History lactobacillus combination no.4 3 3,000 mmu cells PO DAILY 01/08/20 05/11/23 History billion cell capsule (Probiotic) latanoprost 0.005 % eye drops 1 drp ophthalmic (eye) DAILY 01/08/20 05/11/23 History alezlcru-ae-clalq 300 mcg-K 60 1 tablet PO DAILY 01/08/20 05/11/23 History mcg-lycop 600 mcg-lutein 300 mcg tablet (Centrum Silver Men) omega-3s 300 kn-tlr-wjp-other 1 cap PO DAILY 01/08/20 05/11/23 History eyvoi2x-dcpz oil 1,000 mg capsule ([place]ines-3 Fish Oil) famotidine 40 mg tablet 40 mg PO QHS #30 tabs 05/09/23 05/11/23 Rx omeprazole 20 mg capsule,delayed 40 mg PO DAILY 05/09/23 05/11/23 History release cyanocobalamin (vitamin B-12) 1,000 mcg IM MONTHLY 05/11/23 05/11/23 History 1,000 mcg/mL injection solution Allergies Allergy/AdvReac Type Severity Reaction Status Date / Time No Known Allergies Allergy Verified 05/18/23 12:23 Exam Const: General: alert Orientation/consciousness: patient oriented x3 Resp: Auscultation: clear to auscultation bilaterally Cardio: Rhythm: regular rhythm GI: GI Palp: Yes Soft to palpation and No Tenderness to palpation present (GI) Neuro: General: patient oriented x3 Assessment and Plan Assessment and plan (1) Early satiety: Code(s): R68.81 - Early satiety Status: Acute Assessment and Plan: EGD with possible biopsy or dilatation or cautery.
[2023-05-18 12:24] VITALS: BP 151/90; PULSE 83; RESP 18; TEMP 36.6; O2SAT 98
[2023-05-18] MEDS: LACTATED RINGERS 1,000 ML 150 ML IV CONT (12:42)
--- NOTE | 2023-05-18 13:07 | WPDANESEPPF ---
Anes - Initial Pre Proc Eval Procedure: Operation Date: 05/18/23 14:00 Proposed Procedures p Esophagogastroduodenoscopy - Jonathan Valdes MD Date/Time: 05/18/23 13:07 Surgeon: Jonathan Valdes MD Pre Op Diagnosis: Early satiety, abdominal distension,anorexia Patient Data Age: 77 Gender: M Height: 1.78 m Weight: 76.8 kg Last Vital Signs Temp 97.9 F 05/18/23 12:24 Pulse 83 05/18/23 12:24 Resp 18 05/18/23 12:24 BP 151/90 H 05/18/23 12:24 Pulse Ox 98 05/18/23 12:24 O2 Del Method Room Air 05/18/23 12:24 Allergies Allergy/AdvReac Type Severity Reaction Status Date / Time No Known Allergies Allergy Verified 05/18/23 12:23 Home Medications Medication Instructions Recorded Confirmed Type amlodipine 5 mg tablet 5 mg PO DAILY 01/08/20 05/11/23 History aspirin 81 mg tablet,delayed 81 mg PO DAILY 01/08/20 05/11/23 History release atorvastatin 20 mg tablet 20 mg PO DAILY 01/08/20 05/11/23 History lactobacillus combination no.4 3 3,000 mmu cells PO DAILY 01/08/20 05/11/23 History billion cell capsule (Probiotic) latanoprost 0.005 % eye drops 1 drp ophthalmic (eye) DAILY 01/08/20 05/11/23 History hidhtzwu-mn-bhvuk 300 mcg-K 60 1 tablet PO DAILY 01/08/20 05/11/23 History mcg-lycop 600 mcg-lutein 300 mcg tablet (Centrum Silver Men) omega-3s 300 pe-heh-rmo-other 1 cap PO DAILY 01/08/20 05/11/23 History etlho7s-pikh oil 1,000 mg capsule ([place]-3 Fish Oil) famotidine 40 mg tablet 40 mg PO QHS #30 tabs 05/09/23 05/11/23 Rx omeprazole 20 mg capsule,delayed 40 mg PO DAILY 05/09/23 05/11/23 History release cyanocobalamin (vitamin B-12) 1,000 mcg IM MONTHLY 05/11/23 05/11/23 History 1,000 mcg/mL injection solution Patient hx anesthesia problems: none Family hx anesthesia problems: none Results Review: All pre-operative results and documents have been reviewed as part of the pre-operative evaluation. [facility] Past Medical History Medical History Bloating Constipation Diverticulosis DVT (deep venous thrombosis) b/l lower legs 05/2018 post hiatal hernia repair Early satiety GERD (gastroesophageal reflux disease) Glaucoma Hiatal hernia Hyperlipidemia Hypertension Pulmonary embolism Surgical History Surgical History History of repair of hiatal hernia History of tonsillectomy Hx laparoscopic cholecystectomy 10/15/21 Social History Social History Smoking packs per day: 1 Smoking cigarettes per day: 20.0 Smoking status: Former smoker Tobacco type: cigarettes Second hand tobacco smoke exposure: No Additional smoking assessment comments: 40 years ago Alcohol intake: current Drinks per week: 20 Alcohol use details: DRINKS AND BEER Substance use: never Substance use type: does not use Living arrangements: with family Spiritual care concerns: No Anes - Eval Final PreProcedure Day of Procedure 05/18/23 13:07 Patient weight: normal Heart: regular rate and rhythm Lungs: clear to auscultation Airway: Mallampati scale class II Neurological: alert and oriented Last oral intake: >/= 8 hours ASA classification: III Emergent: no Anesthetic plan: proceed Anesthesia type and monitoring: general GIVS and standard monitoring Results Review: All pre-operative results and documents have been reviewed as part of the pre-operative evaluation. Informed Consent: The patient's anesthetic plan and its attendant risks and benefits were discussed with the patient/family/POA. Questions were solicited and answers provided to the satisfaction of the patient/family/POA.
[2023-05-18 13:29] VITALS: BP 104/70; PULSE 78; RESP 17; O2SAT 93
[2023-05-18 13:39] VITALS: BP 123/79; PULSE 76; RESP 17; O2SAT 94
[2023-05-18 13:49] VITALS: BP 130/83; PULSE 74; RESP 17; O2SAT 95
== END 2023-05-18 14:04 | disposition home or self-care (01) ==
PROVIDERS: PCP Internal Medicine; Visit Provider Internal Medicine Gastroenterology
PROC: 0DJ08ZZ Inspection of Upper Intestinal Tract, Via Natural or Artificial Opening Endoscopic (ICD-10-PCS; CPT 43235; principal; 2023-05-18 14:00)
DX: K29.50 Unspecified chronic gastritis without bleeding (principal); K21.9 Gastro-esophageal reflux disease without esophagitis; K44.9 Diaphragmatic hernia without obstruction or gangrene; I10 Essential (primary) hypertension; E78.5 Hyperlipidemia, unspecified; H40.9 Unspecified glaucoma; Z86.711 Personal history of pulmonary embolism; Z86.718 Personal history of other venous thrombosis and embolism; Z79.82 Long term (current) use of aspirin; Z87.891 Personal history of nicotine dependence
CPT/HCPCS: 43239; 88305; J2704; J7120

== ENCOUNTER 2024-09-02 13:48 | Emergency (ER) | payer MEDICARE, SELFPAY ==
--- NOTE | ~2024-09-02 | XR_ITS ---
CHEST RADIOGRAPH, PA AND LATERAL CLINICAL HISTORY: chest pain LEFT X SEVERAL DAYS . COMPARISON: Reference is made to the upper cuts of a CT examination of the abdomen and pelvis perform ed 08/19/2024. TECHNIQUE: PA and lateral views of the chest. FINDINGS The cardiomediastinal silhouette is unremarkable. Increased interstitial markings are identified within the left mid to lower lung field. Interval development of a left-sided pleural effusion, small to moderate in size. The remainder of the lungs are clear. IMPRESSION: Interval development of a small to moderate left-sided pleural effusion, as detailed above. Reviewed, dictated and finalized at location A. ITALIST IMPRESSION: Interval development of a small to moderate left-sided pleural effusion, as det sandra above.
--- NOTE | ~2024-09-02 | CT_ITS ---
EXAMINATION: CTA chest PE protocol DATE: 09/02/2024 15:56 FINANCIAL REPORTING ANALYST INDICATION: Left-sided chest pain TECHNIQUE: Computed tomographic angiography (CTA) of the chest was performed with 100 mL Omnipaque-35 0 intravenous contrast. The dose-length product was 277.41 mGy-cm. Maximum intensity projection 3D-re constructions of the aorta and other arteries were constructed by the technologist on a separate work station. COMPARISON: Reference is made to a plain film evaluation of the chest, performed the same day. Reference is also made to a CT examination of the abdomen and pelvis dated 08/19/2024. FINDINGS/OBSERVATIONS: PULMONARY ARTERIES: No filling defect is identified within the main or proximal pulmonary artery. The main pulmonary artery is not enlarged. THORACIC AORTA: No aneurysmal dilatation or dissection is present. The great vessels are intact LUNGS: Small left-sided pleural effusion with adjacent compressive atelectasis. MEDIASTINUM: No morphologically suspicious or pathologically enlarged lymph nodes are identified with in the mediastinum or bilateral axilla. Redemonstration of a large hiatal hernia, with multiple clips, unchanged from 08/19/2024. BONES OF THE CHEST: No acute fracture. No significant degenerative disease. No lytic or blastic lesions. HEART: The heart is of normal size, without pericardial effusion. IMPRESSION: No pulmonary embolus. No thoracic aortic dissection. Small left-sided pleural effusion with adjacent compressive atelectasis. Large hiatal hernia is redemonstrated. Reviewed, dictated and finalized at location A. NCIAL REPORTING ANALYST
--- NOTE | 2024-09-02 13:49 | ECG_ITS ---
Test Date: 2024-09-02 13:54:23 Measurements Intervals Lawrence Rate: 91 P: 49 NM: 188 QRS: -41 QRSD: 93 T: 31 QT: 353 QTc: 435 Interpretive Statements SINUS RHYTHM LEFT AXIS DEVIATION POSSIBLE LEFT ATRIAL ENLARGEMENT BORDERLINE ECG No previous ECG available for comparison Electronically Signed On 09-02-2024 14:31:16 DATA ANALYST REPORT WRITER by Mikel Silva D.O.
[2024-09-02 13:50] VITALS: BP 165/93; PULSE 95; RESP 15; TEMP 36.8; O2SAT 96
--- OUTSIDE RECORDS SUMMARY | 2024-09-02 13:50 | XMS_ITS | Continuity of Care Document ---
Author Organization [facility] Address [address] [place] [address] Phone Care Team Providers Care Hydro Plant Operator Name Role Phone Griggs OD, Blayne Unavailable Unavailable Procedures Procedure Date Post-op Follow-up Visit After Cataract Laser Surgery Office/outpatient Visit, Est Visual Field Examination(s) Office/outpatient Visit, Est Advance Directives Directive Yes / No Effective Date File Name No Information Encounters Encounter Description Practice Location Reason(s) For Visit Diagnoses Date Provider Providers Copied on Encounter [facility], [address] [place] [address] [address], [place], [place], [id number], tel:[phone] [facility] ([facility]) No Information 4-201 0 Griggs OD Blayne. [address] , [address], [place], [place], [facility], . tel:[phone] [facility], [address], [place], [place], [id number], [place] tel:[phone] [facility] No Information 201 0 Lobito Miller. [address] , [address], [place], [place], [facility], [place]. tel:[phone] Office/outpat ient Visit, Est [facility], [address], [place], [place], [address], [place] tel:[phone] SEC [facility] No Information 4-201 0 Doisy Edcali. [address] [facility] , [address], [place], [address], [place]. tel:[phone] [facility], [address] [place] [address] [address], [place], [place], [address], tel:[phone] SEC [facility] No Information 1 6-200 9 Lobito Miller. [facility] [facility] , [address], [place], [address], [place]. tel:[phone] Referring Provider: Paul Martins, [address] [place] [address] [address], [place], [place], [facility]. tel:[phone] Office/outpat ient Visit, [facility], [address], [place], [place], [address], tel:[phone] [facility] No Information 0 [phone] 9 Lobito Miller. [address] [place] [address] , [address], [place], [address], [place]. tel:[phone] Family History Family Member Type Diagnosis Age At Onset No Information Payers Payer name Insurance type Covered libertarian ID Authoriza tion(s) No Information Social History Type Description Quantity Date Captured Comments Sex Male Smoking Status No Information Chief Complaint And Reason For Visit No Information Reason For Referral Reason For Referral No Information History Of Present Illness Encounter Date Complaint History Of Prese nt Illness No Information Functional Status Date Functional Assessmen t No Information Instructions Date Instruction Additional Infor mation No Information Assessments Type Assessment Date No Information Patient Care Teams Name Effective Dates (start - stop) Status Members No Information
--- OUTSIDE RECORDS SUMMARY | 2024-09-02 13:50 | XMS_ITS | CONTINUITY OF CARE DOCUMENT ---
Author Name aidan bermudez Address Unknown Organization [facility] Address [address] [facility] [address] [place] [address] Phone [phone] Care Team Providers Care Nutritional Services Director Name Role Phone Benigno MUNOZ, Gino Unavailable BEN KINGSLEY MD Unavailable TEETEE MUNOZ, BEN Unavailable PROBLEMS Condition Status Date Provider Notes Syncope and collapse active [employer] INSURANCE PROVIDERS Payer name Policy type / Coverage type Dale red democrat ID [employer] Commercial insurance compan y [id number] [place] Medicare [id number] TREATMENT PLAN Date Name Carotid Duplex Bilat eral Complete Echo HISTORY OF PROCEDURES Procedure Date Procedure Name Provider Procedure Notes S tatus Tosin, 24 or 48 Anthony Cohen MD c ompleted
[2024-09-02 14:09] LABS: Basophils Percent Auto 0.2 % (0.2-1.2); Eosinophils Percent Auto 0.2 % (0-4.4); Hematocrit 46.9 % (42.0-52.0); Hemoglobin 16.2 g/dL (14.0-18.0); Immature Granulocyte Absolute 0.06 K/mm3 (0.00-0.031); Immature Granulocyte Percent A 0.4 % (0-0.5); Lymphocytes Absolute Auto 2.91 K/mm3 (0.9-3.2); Lymphocytes Percent Auto 19.3 % (18.3-44.2); Mean Corpuscular HGB Conc 34.5 g/dl (32-36); Mean Corpuscular Hemoglobin 31.3 pg (26-34); Mean Corpuscular Volume 90.5 fl (80-100); Mean Platelet Volume 9.6 fl (7.4-10.4); Monocytes Absolute Auto 1.4 K/mm3 (0.1-0.6); Monocytes Percent Auto 9.2 % (2.6-8.5); Neutrophils Absolute Auto 10.7 K/mm3 (1.3-6.7); Neutrophils Percent Auto 70.7 % (45.5-73.1); Platelet Count Result 277 k/mm3 (150-375); Red Blood Count 5.18 M/mm3 (4.6-6.20); White Blood Count 15.1 K/mm3 (4.5-10.0)
[2024-09-02 14:20] LABS: Prothrombin Time 13.2 Seconds (11.1-14.7)
[2024-09-02 14:21] LABS: Partial Thromboplastin Time 45.5 Seconds (22.3-36.8)
[2024-09-02 14:30] LABS: Alanine Aminotransferase 31 U/L (6-50); Alkaline Phosphatase 115 U/L (38-126); Anion Gap 8 mmol/L (4-12); Aspartate Amino Transferase 25 U/L (17-59); Bilirubin,Total 1.2 mg/dL (0.2-1.3); Blood Urea Nitrogen 12 mg/dL (9-20); Carbon Dioxide 25 mmol/L (22-30); Chloride 103 mmol/L (98-107); Estimated Glomerular Filt Rate > 60; Glucose 145 mg/dL (65-110); Lipase 28 U/L (23-300); Potassium 4.2 mmol/L (3.4-5.0); Sodium 136 mmol/L (137-145)
[2024-09-02 14:35] VITALS: BP 143/85; PULSE 95; RESP 16; O2SAT 98
--- NOTE | 2024-09-02 14:41 | ED_ITS ---
HPI - Chest Pain General Chief Complaint: Chest Pain Stated Complaint: left chest pain Time Seen by Provider: 09/02/24 14:34 History of Present Illness HPI narrative: 78-year-old male with a past medical history including hypertension, hyperlipidemia, previous pulmonary embolism that was provoked, gastritis, esophagitis, recent colitis. Today patient presents to the emergency room with chief complaint of intermittent left-sided upper abdominal pain radiating towards his back and neck. He states he felt like he might have slept on his side wrong but has been having this intermittent pain since Tuesday. Was concerned about his heart or lungs were came to the ER. Recently had endoscopy at the end of April last year that showed esophagitis and nonerosive reflux disease. He was recently seen here with GI complaints and diagnosed with mild colitis which improved. He has CT scan at that time that did show esophagitis as well. He also has a hiatal hernia on EGD. Patient denies any leg swelling or calf cramping sensations, difficulty breathing or chest discomfort or shortness of breath with exertion. No difficulty breathing at rest. No nausea, vomiting, fever, chills, he was otherwise in his normal state of health. Related Data Home Medications ?Medication ?Instructions ?Recorded ?Confirmed ?Last Taken ?Type amlodipine 5 mg tablet 5 mg PO DAILY 01/08/20 05/11/23 05/17/23 History aspirin 81 mg tablet,delayed 81 mg PO DAILY 01/08/20 05/11/23 05/17/23 History release atorvastatin 20 mg tablet 20 mg PO DAILY 01/08/20 05/11/23 05/17/23 History lactobacillus combination no.4 3 3,000 mmu cells PO DAILY 01/08/20 05/11/23 05/17/23 History billion cell capsule (Probiotic) latanoprost 0.005 % eye drops 1 drp ophthalmic (eye) DAILY 01/08/20 05/11/23 05/17/23 History yruwbgmi-ak-sybsb 300 mcg-K 60 1 tablet PO DAILY 01/08/20 05/11/23 05/17/23 History mcg-lycop 600 mcg-lutein 300 mcg tablet (Centrum Silver Men) omega-3s 300 kq-tqb-jmw-other 1 cap PO DAILY 01/08/20 05/11/23 05/17/23 History tazmr4g-wypq oil 1,000 mg capsule (Mohawk-3 Fish Oil) omeprazole 20 mg capsule,delayed 40 mg PO DAILY 05/09/23 05/11/23 05/17/23 History release cyanocobalamin (vitamin B-12) 1,000 mcg IM MONTHLY 05/11/23 05/11/23 05/17/23 History 1,000 mcg/mL injection solution Allergies Allergy/AdvReac Type Severity Reaction Status Date / Time No Known Allergies Allergy Verified 09/02/24 13:54 Review of Systems 2 Review of Systems: As reviewed above in [facility] Past Medical History Medical History Constipation Bloating Early satiety Diverticulosis Hiatal hernia Glaucoma Pulmonary embolism GERD (gastroesophageal reflux disease) Hypertension Hyperlipidemia DVT (deep venous thrombosis) b/l lower legs 05/2018 post hiatal hernia repair Surgical History Surgical History Hx laparoscopic cholecystectomy 10/15/21 History of tonsillectomy History of repair of hiatal hernia Social History Social History Smoking packs per day: 1 Smoking cigarettes per day: 20.0 Smoking status: Former smoker Tobacco type: cigarettes Second hand tobacco smoke exposure: No Additional smoking assessment comments: 40 years ago Alcohol intake: current Drinks per week: 20 Alcohol use details: [employer] Substance use: never Substance use type: does not use Living arrangements: with family Spiritual care concerns: No Exam 2 Narrative: GENERAL: [Well-appearing, well-nourished, and in no acute distress.] HEAD: [Normocephalic, atraumatic.] EYES: [PERRLA and EOMI.] ENT: Nares clear, no rhinorrhea or epistaxis. Mucous membranes moist. NECK: Supple. CHEST: [Clear to auscultation. No respiratory distress.] HEART: [Regular rate and rhythm]. No murmur heard. [Normal peripheral pulses.] ABDOMEN: [Soft, nondistended], [nontender], [No rigidity or guarding] EXTREMITIES: Normal range of motion. [No edema.] SKIN: Warm, dry, no rash. NEURO: [No focal deficits]. Alert and oriented [x3.] PSYCH: [Normal mood and affect.] Course Vital Signs Vital signs: Vital Signs Temperature 36.8 C 09/02/24 13:50 Pulse Rate 95 09/02/24 13:50 Respiratory Rate 15 09/02/24 13:50 Blood Pressure 165/93 H 09/02/24 13:50 Pulse Oximetry 96 09/02/24 13:50 Oxygen Delivery Room Air 09/02/24 13:50 Temperature 36.8 C 09/02/24 13:50 Pulse Rate 95 09/02/24 14:35 Respiratory Rate 16 09/02/24 14:35 Blood Pressure 143/85 H 09/02/24 14:35 Pulse Oximetry 98 09/02/24 14:35 Oxygen Delivery Room Air 09/02/24 14:34 MDM - Chest Pain MDM Narrative Medical decision making narrative: 78-year-old otherwise healthy appearing male with a past medical history including hypertension, hyperlipidemia, previously provoked PE, gastritis, hiatal hernia. He is no longer taking any anticoagulated medications. For last 3 days he has been having some intermittent left-sided chest, upper abdominal and back discomfort. No associated nausea, vomiting, shortness a breath, exertional chest pain, fever, chills, syncope. He has a soft nontender nondistended abdomen. No rash or lesions in the area around his chest or back. Strong symmetric pulses throughout both arms and legs. Vital signs are reassuring without any significant blood pressure concerns, tachycardia, fever, hypoxia or tachypnea. Given his recent endoscopy he is otherwise high risk for recurrence of a PE but most likely he has symptoms of gastritis or GERD, hiatal hernia. Low suspicion aortic process or a acute coronary syndrome. He was given Maalox and Pepcid for symptom control. CT of the chest was ordered with PE protocol, EKG, chest x-ray, troponin, CBC, CMP and lipase obtained. Workup shows a persistent leukocytosis of 15.1 but decreased from his prior elevations from his recent ER stay 2 weeks ago. Normal hemoglobin, no platelet concerns. Coag shows slightly prolonged APTT, normal INR. Electrolytes within normal limits, normal glucose, normal creatinine, normal LFTs and lipase. Negative troponin. Repeat pending. Chest x-ray shows an interval small left- sided pleural effusion but no recent chest x-ray for comparison purposes. EKG was normal sinus rhythm without any concern for acute ischemic event. CT scan pending. CT scan shows no pulmonary embolism, no dissection, large hiatal hernia is seen, small left-sided effusion with compressive atelectasis but no consolidation or pneumonia. I went and re-evaluated the patient who is still asymptomatic at this time, told him about the findings and he states that he had hiatal surgery repair approximately 6+ years ago for similar issue and will have to follow-up with his thoracic surgeon and GI specialist. I told him about the small pleural effusion which is nonspecific, negative cardiac workup otherwise and given his symptom improvement and no concerning findings today I believe he can be safely discharged home with outpatient follow-up and patient was comfortable with this plan. Medical Records Data Attestation: I reviewed the patient's medical records. Lab Data Attestation: I reviewed the patient's lab results. 09/02/24 14:03 09/02/24 14:03 Labs: Lab Results 09/02/24 Range/Units 14:03 WBC 15.1 H (4.5-10.0) K/mm3 RBC 5.18 (4.6-6.20) M/mm3 Hgb 16.2 (14.0-18.0) g/dL Hct 46.9 (42.0-52.0) % MCV 90.5 (80-100) fl MCH 31.3 (26-34) pg MCHC 34.5 (32-36) g/dl RDW 13.0 (11.5-14.5) % Plt Count 277 (150-375) k/mm3 MPV 9.6 (7.4-10.4) fl Immature Gran % (Auto) 0.4 (0-0.5) % Neut % (Auto) 70.7 (45.5-73.1) % Lymph % (Auto) 19.3 (18.3-44.2) % Carlton % (Auto) 9.2 H (2.6-8.5) % Eos % (Auto) 0.2 (0-4.4) % Baso % (Auto) 0.2 (0.2-1.2) % Lymph # (Auto) 2.91 (0.9-3.2) K/mm3 Carlton # (Auto) 1.4 H (0.1-0.6) K/mm3 Eos # (Auto) 0.0 (0-0.3) K/mm3 Baso # (Auto) 0.0 (0.0-0.1) K/mm3 Abs Immat Gran (auto) 0.06 H (0.00-0.031) K/mm3 Absolute Neuts (auto) 10.7 H (1.3-6.7) K/mm3 Absolute Nucleated RBC 0.000 (0.0-0.012) K/mm3 Nucleated RBC % 0.0 (0.0-0.2) % PT 13.2 (11.1-14.7) Seconds INR 1.0 APTT 45.5 H (22.3-36.8) Seconds Sodium 136 L (137-145) mmol/L Potassium 4.2 (3.4-5.0) mmol/L Chloride 103 (98-107) mmol/L Carbon Dioxide 25 (22-30) mmol/L Anion Gap 8 (4-12) mmol/L BUN 12 (9-20) mg/dL Creatinine 0.78 (0.7-1.3) mg/dL Estim Creat Clear Calc Not Reportable Estimated GFR > 60 (59 - ) Glucose 145 H (65-110) mg/dL Calcium 9.0 (8.4-10.2) mg/dL Total Bilirubin 1.2 (0.2-1.3) mg/dL AST 25 (17-59) U/L ALT 31 (6-50) U/L Alkaline Phosphatase 115 (38-126) U/L Troponin I < 0.012 (0.000-0.034) ng/mL Total Protein 7.0 (6.3-8.2) g/dL Albumin 4.0 (3.5-5.1) g/dL Lipase 28 (23-300) U/L Imaging Data Attestation: I personally reviewed and interpreted this imaging study as follows: My impression: Impressions Chest X-Ray 09/02/24 14:25 IMPRESSION: Interval development of a small to moderate left-sided pleural effusion, as detailed above. Chest CTA 09/02/24 15:55 IMPRESSION: No pulmonary embolus. No thoracic aortic dissection. Small left-sided pleural effusion with adjacent compressive atelectasis. Large hiatal hernia is redemonstrated. ECG Data EKG #1: Attestation: I personally reviewed and interpreted this ECG as follows: ECG completion date: 09/02/24 ECG completion time: 13:54 Prior ECG tracings: not available for review Interpretation: Normal sinus rhythm, no signs of ST segment elevations, depressions or inversions. Regular rate, slight leftward deviated axis, regular rhythm. QTC 453, QRS of 93, CO 188. No previous EKG available for comparison. Overall normal sinus rhythm. Discharge Plan Discharge Clinical Impression: Epigastric pain, Large hiatal hernia, Small pleural effusion Patient Disposition: Home, Self-Care Condition: Stable Instructions: Antibiotic Form, Chest Pain (DC), Hiatal Hernia (DC), Pleural Effusion (DC) Additional Instructions: Follow-up with your GI specialist and thoracic surgeon regarding her recurrent hiatal hernia which is rather large on CT scan. This is likely the source severe epigastric and chest discomfort. There is also very small fluid collection around her lungs on the left side but no pneumonia, your cardiac enzymes were undetectable and there is no signs of any heart damage or electrolyte problems. Follow-up with your regular doctors, return if you develop any new or worsening concerns at any time. Patient Language: Gabonese Prescriptions: No Action ondansetron 4 mg tablet,disintegrating 4 mg PO Q8H PRN (Reason: nausea and vomiting) Qty: 10 0RF latanoprost 0.005 % drops 1 drp ophthalmic (eye) DAILY atorvastatin 20 mg tablet 20 mg PO DAILY amlodipine 5 mg tablet 5 mg PO DAILY aspirin 81 mg Tablet,Delayed Release (Dr/Ec) 81 mg PO DAILY Centrum Silver Men 300-600-300 mcg Tablet 1 tablet PO DAILY Probiotic 3 billion cell Capsule 3,000 mmu cells PO DAILY Mohawk-3 Fish Oil 300-1,000 mg Capsule 1 cap PO DAILY omeprazole 20 mg capsule,delayed release(DR/EC) 40 mg PO DAILY cyanocobalamin (vitamin B-12) 1,000 mcg/mL Solution 1,000 mcg IM MONTHLY famotidine 40 mg tablet See Rx Instructions .ROUTE .COMPLEX Qty: 30 2RF Dose Instruction: TAKE 1 TABLET BY MOUTH EVERY DAY AT BEDTIME Rx Instructions: TAKE 1 TABLET BY MOUTH EVERY DAY AT BEDTIME Follow-up/Referrals: Devyn,Satnam Valdez MD [Primary Care Provider] - Time of Disposition: 16:15 Quality HEART score for chest pain patients History: slightly suspicious ECG: normal Age: > or = to 65 years Risk factors: 1 or 2 risk factors Troponin: < or = to 1x normal limit Heart score: 3
[2024-09-02 14:42] LABS: Troponin I < 0.012 ng/mL (0.000-0.034)
[2024-09-02] MEDS: ASPIRIN 81 MG CHEWABLE TABLET 324 MG PO (14:59)
[2024-09-02] MEDS: MAG HYDROX/AL HYDROX/SIMETH 30 ML UDC PO (15:00)
[2024-09-02] MEDS: FAMOTIDINE 20 MG/2 ML VIAL IV PUSH (15:00)
--- NOTE | 2024-09-02 15:03 | PC.NURSE ---
Pt to CT.
--- OUTSIDE RECORDS SUMMARY | 2024-09-02 15:25 | XMS_ITS | Continuity of Care Document ---
Author Organization [facility] Address [address] [place] [address] Phone Care Team Providers Care Director Of Engineering Name Role Phone Griggs OD, Blayne Unavailable Unavailable Procedures Procedure Date Post-op Follow-up Visit After Cataract Laser Surgery Office/outpatient Visit, Est Visual Field Examination(s) Office/outpatient Visit, Est Advance Directives Directive Yes / No Effective Date File Name No Information Encounters Encounter Description Practice Location Reason(s) For Visit Diagnoses Date Provider Providers Copied on Encounter [facility], [id number] [place] [address] [address], [place], [place], [id number], tel:[phone] [facility] No Information 4-201 0 Griggs OD Blayne. [address] , [address], [place], [place], [facility], . tel:[phone] [facility], [address], [place], [place], [id number], [place] tel:[phone] [facility] No Information 201 0 Lobito Miller. [address] , [address], [place], [place], [facility], [place]. tel:[phone] Office/outpat ient Visit, Est [facility], [address], [place], [place], [id number], [place] tel:[phone] [facility] [place] No Information [phone] Doisy Edcali. [address] , [address], [place], [address], [place]. tel:[phone] [facility], [address] [place] [address] [address], [place], [place], [id number], tel:[phone] [facility] No Information 1 [phone] Lobito Miller. [facility] [facility] , [address], [place], [address], [place]. tel:[phone] Referring Provider: Paul Martins, [address] [place] [address] [address], [place], [place], [facility]. tel:[phone] Office/outpat ient Visit, [facility], [address], [place], [place], [id number], tel:[phone] [facility] No Information 0 [phone] Lobito Miller. [address] [place] [address] , [address], [place], [address], [place]. tel:[phone] Family History Family Member Type Diagnosis Age At Onset No Information Payers Payer name Insurance type Covered alliance party ID Authoriza tion(s) No Information Social History [...]
--- OUTSIDE RECORDS SUMMARY | 2024-09-02 15:25 | XMS_ITS | CONTINUITY OF CARE DOCUMENT ---
Author Name aidan bermudez Address Unknown Organization [facility] Address [address] [place] [address] Phone [phone] Care Team Providers Care Installation Superintendent Name Role Phone Benigno MUNOZ, Gino Unavailable BEN KNIGSLEY MD Unavailable TEETEE MUNOZ, BEN Unavailable PROBLEMS Condition Status Date Provider Notes Syncope and collapse active [employer] INSURANCE PROVIDERS Payer name Policy type / Coverage type [place] red alliance party ID [employer] Commercial insurance compan y [id number] [place] [employer] Medicare [id number] TREATMENT PLAN Date Name Carotid Duplex Bilat eral Complete Echo HISTORY OF PROCEDURES Procedure Date Procedure Name Provider Procedure Notes S tatus Tosin, 24 or 48 Anthony Cohen MD c ompleted
[2024-09-02 15:45] VITALS: BP 148/88; PULSE 91; RESP 18; TEMP 36.6; O2SAT 93
== END 2024-09-02 16:49 | disposition home or self-care (01) ==
PROVIDERS: Emergency Medicine; Emergency Provider Student in an Organized Health Care Education/Training Program; PCP Internal Medicine
DX: K44.9 Diaphragmatic hernia without obstruction or gangrene (principal); J90 Pleural effusion, not elsewhere classified; R10.13 Epigastric pain; I10 Essential (primary) hypertension; E78.5 Hyperlipidemia, unspecified; K21.00 Gastro-esophageal reflux disease with esophagitis, without bleeding; H40.9 Unspecified glaucoma; Z86.718 Personal history of other venous thrombosis and embolism; Z86.711 Personal history of pulmonary embolism; Z87.891 Personal history of nicotine dependence; Z90.49 Acquired absence of other specified parts of digestive tract; Z79.899 Other long term (current) drug therapy
CPT/HCPCS: 36415; 71046; 71275; 80053; 83690; 84484; 85025; 85610; 85730; 93005; 96374; 99284; A9270; Q9967